=== PATIENT | male | born 1960 | race Caucasian/White ===

== ENCOUNTER 2019-09-18 18:14 | Inpatient (IN) | payer OTHER ==
[~2019-09-18] VITALS: Ht 175.3 cm; Wt 89.1 kg
[2019-09-18 20:06] LABS: BASOPHIL % 0.5 % (0-2); PLATELET COUNT 233 x10^3mcL (130-400); RED CELL DISTRIBUTION WIDTH 13.9 % (11.5-14.5)
[2019-09-18 21:05] LABS: CARBON DIOXIDE 26.8 mmol/L (21-32); CHLORIDE SERUM 107 mmol/L (98-107); CREATININE SERUM 0.8 mg/dL (0.7-1.3); GFR1 > 60 mL/min; GLUCOSE SERUM 111 mg/dL (74-106); POTASSIUM SERUM 3.8 mmol/L (3.5-5.1); SODIUM SERUM 143 mmol/L (136-145); TOTAL PROTEIN, SERUM 7.4 g/dL (6.4-8.2)
[2019-09-18 21:06] LABS: ALBUMIN 3.2 g/dL (3.4-5.0); ALKALINE PHOSPHATASE 70 U/L (46-116); ALT/SGPT 19 U/L (16-63); AST/SGOT 14 U/L (15-37); BILIRUBIN TOTAL 0.19 mg/dL (0.20-1.00); CALCIUM 8.6 mg/dL (8.5-10.1); CHOLESTEROL 158 mg/dL (<200); HDL CHOLESTEROL 35 mg/dL (40-60); MAGNESIUM 2.3 mg/dL (1.8-2.4); PHOSPHOROUS 2.6 mg/dL (2.5-4.9)
[2019-09-18 21:33] LABS: microscopic required? NO
[2019-09-18 21:41] LABS: UA SPECIFIC GRAVITY 1.025 (1.005-1.035); urine erythrocyte NEGATIVE (NEGATIVE)
[2019-09-18] MEDS ORDERED: ENTRESTO1 TA2 PO (22:13)
[2019-09-18] MEDS ORDERED: BRILINTA90 M1 PO (22:14)
[2019-09-18] MEDS ORDERED: CARVEDILOL ER40 MG (22:14)
[2019-09-18] MEDS ORDERED: SIMVASTATIN80 M1 PO (22:14)
[2019-09-18] MEDS ORDERED: FINASTERIDE1 MG PO (22:15)
[2019-09-18] MEDS ORDERED: FLOMAX0.4 MG PO (22:15)
[2019-09-18] MEDS ORDERED: ASPIR 8181 MG PO (22:15)
[2019-09-19 01:04] VITALS: BP 110/64
[2019-09-19 01:07] VITALS: Ht 175.3 cm; Wt 89.1 kg
[2019-09-19 06:48] VITALS: BP 115/80
[2019-09-19 06:50] LABS: CALCIUM 8.1 mg/dL (8.5-10.1); CARBON DIOXIDE 32.1 mmol/L (21-32); CHLORIDE SERUM 107 mmol/L (98-107); CREATININE SERUM 0.9 mg/dL (0.7-1.3); GFR1 > 60 mL/min; GLUCOSE SERUM 93 mg/dL (74-106); POTASSIUM SERUM 4.4 mmol/L (3.5-5.1); SODIUM SERUM 144 mmol/L (136-145)
[2019-09-19 06:51] LABS: MAGNESIUM 2.1 mg/dL (1.8-2.4); PHOSPHOROUS 3.6 mg/dL (2.5-4.9)
[2019-09-19 06:52] LABS: BASOPHIL % 0.4 % (0-2); PLATELET COUNT 210 x10^3mcL (130-400)
[2019-09-19 08:26] VITALS: BP 126/85
[2019-09-19 12:04] VITALS: BP 123/79
[2019-09-19] MEDS ORDERED: ASPIRIN FOR CHI81 M1 PO (13:31)
[2019-09-19] MEDS ORDERED: BRILINTA90 M1 PO (13:37)
== END 2019-09-19 15:56 | disposition home or self-care (01) | DRG 69 ==
LOC: ED 18:14 → DU 22:58
PROVIDERS: Emergency Medicine; ADMIT Internal Medicine
DX: G45.9 Transient cerebral ischemic attack, unspecified (principal); E44.0 Moderate protein-calorie malnutrition; I10 Essential (primary) hypertension; N40.0 Benign prostatic hyperplasia without lower urinary tract symptoms; E78.5 Hyperlipidemia, unspecified; F14.21 Cocaine dependence, in remission; I25.10 Atherosclerotic heart disease of native coronary artery without angina pectoris; Z79.82 Long term (current) use of aspirin; Z68.28 Body mass index [BMI] 28.0-28.9, adult; Z95.1 Presence of aortocoronary bypass graft; Z87.891 Personal history of nicotine dependence; Z95.5 Presence of coronary angioplasty implant and graft; Z95.810 Presence of automatic (implantable) cardiac defibrillator
CPT/HCPCS: G0378; J7030; Q0092; Q9967

== ENCOUNTER 2020-02-04 04:29 | Emergency (ER) | payer OTHER ==
[~2020-02-04 04:29] MED LIST: ASPIR 8181 MG PO; ASPIRIN FOR CHI81 M1 PO; BRILINTA90 M1 PO; CARVEDILOL ER40 MG; ENTRESTO1 TA2 PO; FINASTERIDE1 MG PO; FLOMAX0.4 MG PO; SIMVASTATIN80 M1 PO
== END 2020-02-04 04:39 | disposition left against medical advice (07) ==
LOC: ED 04:29
DX: Z53.21 Procedure and treatment not carried out due to patient leaving prior to being seen by health care provider (principal)